=== PATIENT | female | born 1935 | race Caucasian/White ===

== ENCOUNTER 2018-09-24 04:21 | Emergency (ER) | payer OTHER, MEDICARE ==
[2018-09-24 04:31] VITALS: TEMP 97.8; BMI 29.9
--- NOTE | 2018-09-24 04:41 | PDOC ---
History of Present Illness - General Chief Complaint: Pain, Acute Stated Complaint: PAIN RADIATING DOWN LEFT LEG X 5 DAYS Time Seen by Provider: 09/24/18 04:31 History Source: Patient Exam Limitations: No Limitations - History of Present Illness Initial Comments: 09/24/18 04:47 This is an 82-year-old female who has history of spinal stenosis and sciatica. Patient said that is been flaring up over the last several days and this morning when she was carrying something it got worse and started radiating down her leg. Patient took 2 regular strength Tylenol and clonazepam without relief so called an ambulance. Allergies: None Past Medical History: none Social history: Lives with family. No smoking. No alcohol. No illicit drugs. Surgical history: None General: No fevers or chills, no weakness, no weight loss HEENT: No change in vision. No sore throat,. No ear pain CardioVascular: no chest discomfort. No shortness of breath Respiratory:No cough, or wheezing. Gastrointestinal: no nausea, vomiting, diarrhea or constipation, No rectal bleeding Genitourinary: No dysuria, hematuria, or frequency Musculoskeletal: left sciatica Neurologic: No headache, vertigo, dizziness or loss of consciousness Psychiatric: nor depression Skin: No rashes or easy bruising Endocrine: no increased thirst or abnormal weight change Allergic: no skin or latex allergy All other systems reviewed and normal GENERAL: The patient is awake, alert, and fully oriented, in no acute distress. HEAD: Normal with no signs of trauma. EYES: Pupils equal, round and reactive to light, extraocular movements intact, sclera anicteric, conjunctiva clear. EXTREMITIES:atraumatic, Normal range of motion, no edema. BACK: There is pain on palpation over the left sciatic notch there is no pain on palpation of the lumbar or sacral spine. Pain is not exacerbated by straight leg raising. NEUROLOGICAL: Normal speech, normal gait. PSYCH: Normal mood, normal affect. SKIN: Warm, Dry, normal turgor, no rashes or lesions noted. 09/24/18 06:21 Patient's pain improved after Tylenol and Robaxin. Patient still has some pain but is able to ambulate to the bathroom with minimal assistance. Patient discharged home, her son is coming to pick her up. Past History - Past Medical History Allergies/Adverse Reactions: Allergies Allergy/AdvReac Type Severity Reaction Status Date / Time Penicillins Allergy Mild Verified 09/24/18 04:23 Home Medications: Ambulatory Orders Hydrochlorothiazide [Hctz -] 25 mg PO DAILY 02/17/12 Metoprolol Succinate [Toprol XL -] 25 mg PO BID 02/17/12 Alprazolam [Xanax -] 0.25 mg PO Q12H PRN 05/24/14 Calcium Carbonate/Vitamin D3 [Caltrate-600 with Vit D Tab] 1 each PO BID Cholecalciferol (Vitamin D3) [Vitamin D] 1,000 unit PO BID 05/24/14 Simvastatin [Zocor -] 40 mg PO HS 05/24/14 Warfarin Na [Coumadin] 2.5 mg PO HS 05/24/14 Methocarbamol [Robaxin -] 500 mg PO TID #21 tablet 09/24/18 Cardiac Disorders: Yes (afib) COPD: No GI Disorders: Yes (IBS) HTN: Yes Hypercholesterolemia: Yes Seizures: Yes (ANXIETY) Other medical history: SPINAL STENOSIS - Suicide/Smoking/Psychosocial Hx Smoking Status: No Smoking History: Never smoked Have you smoked in the past 12 months: No Number of Cigarettes Smoked Daily: 0 Information on smoking cessation initiated: No Hx Alcohol Use: No Drug/Substance Use Hx: No Trauma Specific PMHX - Complaint Specific PMHX Arthritis: No *Physical Exam - Vital Signs Last Vital Signs Temp Pulse Resp BP Pulse Ox 97.8 F 74 16 160/71 95 09/24/18 04:24 09/24/18 04:24 09/24/18 04:24 09/24/18 04:24 09/24/18 04:24 Moderate Sedation - Procedure Monitoring Vital Signs: Procedure Monitoring Vital Signs Temperature 97.8 F 09/24/18 04:24 Pulse Rate 74 09/24/18 04:24 Respiratory Rate 16 09/24/18 04:24 Blood Pressure 160/71 09/24/18 04:24 O2 Sat by Pulse Oximetry (%) 95 09/24/18 04:24 *DC/Admit/Observation/Transfer Diagnosis at time of Disposition: Low back pain - Discharge Dispostion Disposition: HOME Condition at time of disposition: Stable Decision to Admit order: No - Prescriptions Prescriptions: Methocarbamol [Robaxin -] 500 mg PO TID #21 tablet - Referrals - Patient Instructions Additional Instructions: For the pain take Tylenol 2 extra strength tablets or 4 regular strength tablets every 4-6 hours. In addition to that you can take Robaxin 1 tablet 3 times a day. Return to the emergency department immediately with ANY new, persistent or worsening symptoms. Continue any medications as previously prescribed by your physician. You should follow up with your primary doctor as soon as possible regarding today's emergency department visit. . Please make sure your doctor reviews the results of your emergency evaluation. Thank you for coming to the Emergency Department today for your care. It was a pleasure to see you today. Please note that your evaluation is INCOMPLETE until you follow-up with your doctor. - Post Discharge Activity
[2018-09-24] MEDS ORDERED: ACETAMINOPHEN 325 MG TABLET (FP) PO ONE (04:42)
[2018-09-24] MEDS ORDERED: ACETAMINOPHEN 325 MG TABLET (FP) ONE (04:43)
[2018-09-24] MEDS ORDERED: METHOCARBAMOL 500 MG TABLET PO ONE (04:45)
[2018-09-24] MEDS ORDERED: METHOCARBAMOL 500 MG TABLET ONE (04:48)
[2018-09-24 09:51] VITALS: BP 146/65; PULSE 79
== END 2018-09-24 10:42 | disposition home or self-care (01) ==
LOC: FER 04:21
DX: M54.5 Low back pain (principal); F41.9 Anxiety disorder, unspecified; I48.91 Unspecified atrial fibrillation; E78.00 Pure hypercholesterolemia, unspecified; I10 Essential (primary) hypertension
CPT/HCPCS: 99281-25

== ENCOUNTER 2018-09-30 04:35 | Emergency (ER) | payer OTHER, MEDICARE ==
--- NOTE | 2018-09-30 04:36 | PDOC ---
History of Present Illness - General Stated Complaint: FALL History Source: Patient - History of Present Illness Initial Comments: 09/30/18 04:53 The patient is an 82 year old female with a PMH of AFib (on Warfarin), HTN, HLD and Sciatica who was BIBEMS following a fall from a straight backed armless chair to the ground. Patient state she was working at the computer when she fell asleep. She next remembers hearing a loud noise and waking up and falling over onto her R side. Was not able to lift herself up so she moved along the floor to the bottom of the stairwell and called for her who was upstairs. Allergy: Penicillin Past History - Past Medical History Allergies/Adverse Reactions: Allergies Allergy/AdvReac Type Severity Reaction Status Date / Time Penicillins Allergy Mild Verified 09/30/18 04:41 Home Medications: Ambulatory Orders Hydrochlorothiazide [Hctz -] 25 mg PO DAILY 02/17/12 Metoprolol Succinate [Toprol XL -] 25 mg PO DAILY 02/17/12 Calcium Carbonate/Vitamin D3 [Caltrate-600 with Vit D Tab] 1 each PO BID Cholecalciferol (Vitamin D3) [Vitamin D] 1,000 unit PO BID 05/24/14 Simvastatin [Zocor -] 40 mg PO HS 05/24/14 Warfarin Na [Coumadin] 2.5 mg PO SUMOTUTHFR 05/24/14 Methocarbamol [Robaxin -] 500 mg PO TID #21 tablet 09/24/18 Clonazepam 0.25 mg PO DAILY PRN 09/30/18 Loperamide HCl [Loperamide] 2 mg PO DAILY PRN 09/30/18 Metformin HCl [Metformin HCl ER] 500 mg PO BID 09/30/18 Warfarin Sodium [Coumadin] 5 mg PO WESA 09/30/18 Cardiac Disorders: Yes (afib) COPD: No GI Disorders: Yes (IBS) HTN: Yes Hypercholesterolemia: Yes Seizures: Yes (ANXIETY) - Suicide/Smoking/Psychosocial Hx Smoking Status: No Smoking History: Never smoked Have you smoked in the past 12 months: No Number of Cigarettes Smoked Daily: 0 Hx Alcohol Use: No Drug/Substance Use Hx: No Review of Systems - Review of Systems Constitutional: No: Chills, Fever HEENTM: No: Blurred Vision, Recent change in vision Respiratory: No: Cough, Shortness of Breath Cardiac (ROS): No: Chest Pain, Lightheadedness, Palpitations, Syncope ABD/GI: No: Constipated, Diarrhea, Nausea, Vomiting *Physical Exam - Physical Exam Comments: 09/30/18 04:59 Awake, alert, verbal Moves all 4 extremities 0.5 mm abrasion on L temporal lobe S1/S2 Lungs CLTA B/L General Appearance: Yes: Nourished, Appropriately Dressed HEENT: positive: Normal Voice, Hearing Grossly Normal Neck: positive: Trachea midline, Supple Respiratory/Chest: positive: Lungs Clear, Normal Breath Sounds Cardiovascular: positive: S1, S2. negative: Edema, JVD, Murmur Vascular Pulses: Dorsalis-Pedis (R): 2+, Doralis-Pedis (L): 2+ Gastrointestinal/Abdominal: positive: Normal Bowel Sounds, Soft Extremity: positive: Normal Capillary Refill, Normal Inspection Integumentary: positive: Normal Color, Dry Neurologic: positive: Fully Oriented, Alert Heart Score/ECG Review - ECG Impressions Comment:: 09/30/18 06:55 HR 69, 1st degree AV block, incomplete RBB, c/w previous EKG ED Treatment Course - LABORATORY CBC & Chemistry Diagram: 09/30/18 05:10 09/30/18 05:10 Medical Decision Making - Medical Decision Making 09/30/18 04:56 82 year old female presents s/p fall from a chair to the floor. VS stable. Pelvis stable, moves all 4 extremities, no C-spine, L/T/S tenderness. H/o AFib on Warfarin. Will obtain Head CT, basic labs. Cervical collar in place. Reassess. 09/30/18 05:53 INR 1.48 - subtherapeutic, patient safe for discharge home pending imaging. Head CT/C-spine pending. Will sign patient out to Dr. Barcenas (Attending) Likely disposition is home pending no acute fracture/subluxation *DC/Admit/Observation/Transfer Diagnosis at time of Disposition: Closed head injury Fall Qualifiers: Encounter type: initial encounter Qualified Code(s): W19.XXXA - Unspecified fall, initial encounter Cervical strain Qualifiers: Encounter type: initial encounter Qualified Code(s): S16.1XXA - Strain of muscle, fascia and tendon at neck level, initial encounter - Discharge Dispostion Disposition: HOME Condition at time of disposition: Good Decision to Admit order: No - Referrals Referrals: Chris Carrasco [Primary Care Provider] - - Patient Instructions Printed Discharge Instructions: How to Prevent Falls, DI for Closed Head Injury Additional Instructions: Follow up with your primary care doctor in the next one week. Return to the ED for any new/worsening/concerning symptoms. FALL PREVENTION AT HOME WHAT YOU NEED TO KNOW There are many different factors that can increase your risk of falls. Falls can happen any time, but the majority of them occur in the home. Fall prevention includes ways to make your home and other areas safer. It also includes ways you can move more carefully to prevent a fall. Health conditions that cause changes in your blood pressure, vision, or muscle strength and coordination may increase your risk for falls. Medicines, including anesthesia, may increase your risk for falls if they make you dizzy, weak, or sleepy. FALL PREVENTION TIPS Stand or sit up slowly. This may help you keep your balance and prevent falls. Do not walk and talk at the same time. Concentrate on the task of walking and continue the conversation after you've reached a safe place. Wear shoes that fit well and have soles that digital forensic examiner. Wear shoes both inside and outside. Use slippers with good digital forensic examiner. Avoid shoes with high heels. Use assistive devices as directed. Your healthcare provider may suggest that you use a cane or walker to help you keep you balance. Be sure you have adequate lighting throughout your house. Keep paths clear. Remove books, shoes and other objects from walkways and stairs. Keep cords for telephones and lamps out of the way so you dont need to walk over them. Remove small rugs or secure them with double-sided tape. This will prevent you from tripping. Use a nightlight when getting out of bed at night. Stay active to maintain overall strength and endurance. Know your limitations. If there is a task you can not complete with ease, do not risk a fall by trying to complete it. Call 911 or have someone else call if: You have fallen and are unconscious You have fallen and cannot move part of your body Contact your healthcare provider if: You have fallen and have pain or a headache You have questions or concerns about your condition or care. - Post Discharge Activity
[2018-09-30 04:45] VITALS: TEMP 98.4; BMI 30.2
--- NOTE | 2018-09-30 04:50 | PDOC ---
Attending Attestation - HPI HPI: 09/30/18 05:40 The patient is an 82 year old female with a PMH of afib (on Warfarin), HTN, HLD and sciatica who was brought in by EMS s/p fall prior to arrival. Patient states she was getting up from an armless chair after getting startled from her sleep when she fell onto her right side. Patient was unable to ambulate after the fall and called her to come help her. Allergy: Penicillins Social Hx: No reported alcohol, drug or cigarette use. Surgical Hx: None reported. - Physicial Exam PE: 09/30/18 05:40 Agree with resident's exam. <Carolina Gallo - Last Filed: 09/30/18 05:40> - Resident Resident Name: Marlyn Hurtado - ED Attending Attestation I have performed the following: I have examined & evaluated the patient, The case was reviewed & discussed with the resident, I agree w/resident's findings & plan - Medical Decision Making 09/30/18 06:30 82-year-old female status post mechanical fall with an abrasion to the scalp currently on Coumadin for atrial fibrillation Plan for CT scans of the head and cervical spine with likely discharged home if normal INR is subtherapeutic at 1.48 <Yuliet Carlos - Last Filed: 09/30/18 06:31>
[2018-09-30 05:24] LABS: BASO % 2.4 % (0-2.0); EOS % 4.5 % (0-4.5); HEMATOCRIT 36.8 % (32.4-45.2); HEMOGLOBIN 12.3 GM/dL (10.7-15.3); LYMPH % 25.2 % (8-40); MCH 29.5 pg (25.7-33.7); MCHC 33.4 g/dl (32.0-36.0); MEAN CELL VOLUME 88.3 fl (80-96); MEAN PLT VOLUME 8.1 fl (7.5-11.1); MONO % 10.9 % (3.8-10.2); PLATELET COUNT 180 K/MM3 (134-434); RBC 4.16 M/mm3 (3.60-5.2); RDW 15.4 % (11.6-15.6); WHITE BLOOD COUNT 4.6 K/mm3 (4.0-10.0)
[2018-09-30 05:46] LABS: INR 1.48 (0.83-1.09); PROTHROMBIN TIME (PATIENT) 17.5 SEC (9.7-13.0)
[2018-09-30 05:49] LABS: ACTIVATED PTT 35.1 SECONDS (25.2-36.5)
[2018-09-30 05:57] LABS: ALBUMIN 3.9 g/dl (3.4-5.0); ALK PHOS 75 U/L (45-117); ANION GAP 7 MMOL/L (8-16); BILIRUBIN,TOTAL 0.4 mg/dL (0.2-1); BLOOD UREA NITROGEN 18 mg/dL (7-18); CHLORIDE 106 mmol/L (98-107); CO2 30 mmol/L (21-32); CREATININE 0.9 mg/dL (0.55-1.3); GLUCOSE,RANDOM 127 mg/dL (74-106); POTASSIUM 4.3 mmol/L (3.5-5.1); SGOT/AST 26 U/L (15-37); SGPT/ALT 28 U/L (13-61); SODIUM 143 mmol/L (136-145); TOT PROT 7.3 g/dl (6.4-8.2)
--- NOTE | 2018-09-30 07:56 | PDOC ---
*Physical Exam - Vital Signs Last Vital Signs Temp Pulse Resp BP Pulse Ox 98.4 F 67 18 136/73 96 09/30/18 04:41 09/30/18 04:41 09/30/18 04:41 09/30/18 04:41 09/30/18 05:30 ED Treatment Course - LABORATORY CBC & Chemistry Diagram: 09/30/18 05:10 09/30/18 05:10 - ADDITIONAL ORDERS Additional order review: Laboratory Results 09/30/18 09/30/18 05:10 05:10 PT with INR 17.50 H INR 1.48 H PTT (Actin FS) 35.1 Sodium 143 Potassium 4.3 Chloride 106 Carbon Dioxide 30 Anion Gap 7 L BUN 18 Creatinine 0.9 Creat Clearance w eGFR 59.65 Random Glucose 127 H Calcium 9.0 Total Bilirubin 0.4 AST 26 ALT 28 Alkaline Phosphatase 75 Total Protein 7.3 Albumin 3.9 09/30/18 05:10 RBC 4.16 MCV 88.3 MCHC 33.4 RDW 15.4 MPV 8.1 Neutrophils % 57.0 Lymphocytes % 25.2 Monocytes % 10.9 H Eosinophils % 4.5 Basophils % 2.4 H Medical Decision Making - Medical Decision Making 09/30/18 07:53 pt signed out from Dr Carlos pending reeval and CT imaging results s/p fall VS reviewed, wnl. labs wnl, INR mildly subtherapeutic CT head neg for bleed/injuries CT c spine with degenerative changes, no fx/subluxation pt feels better. intermittent double vision, since resolved. no visual deficits and no focal neuro deficits fall safety precaution provided 09/30/18 07:56 *DC/Admit/Observation/Transfer Diagnosis at time of Disposition: Closed head injury Fall Qualifiers: Encounter type: initial encounter Qualified Code(s): W19.XXXA - Unspecified fall, initial encounter Cervical strain Qualifiers: Encounter type: initial encounter Qualified Code(s): S16.1XXA - Strain of muscle, fascia and tendon at neck level, initial encounter - Discharge Dispostion Disposition: HOME Condition at time of disposition: Good Decision to Admit order: No - Referrals - Patient Instructions Printed Discharge Instructions: How to Prevent Falls, DI for Closed Head Injury Additional Instructions: Follow up with your primary care doctor in the next one week. Return to the ED for any new/worsening/concerning symptoms. FALL PREVENTION AT HOME WHAT YOU NEED TO KNOW There are many different factors that can increase your risk of falls. Falls can happen any time, but the majority of them occur in the home. Fall prevention includes ways to make your home and other areas safer. It also includes ways you can move more carefully to prevent a fall. Health conditions that cause changes in your blood pressure, vision, or muscle strength and coordination may increase your risk for falls. Medicines, including anesthesia, may increase your risk for falls if they make you dizzy, weak, or sleepy. FALL PREVENTION TIPS Stand or sit up slowly. This may help you keep your balance and prevent falls. Do not walk and talk at the same time. Concentrate on the task of walking and continue the conversation after you've reached a safe place. Wear shoes that fit well and have soles that cattle broker. Wear shoes both inside and outside. Use slippers with good cattle broker. Avoid shoes with high heels. Use assistive devices as directed. Your healthcare provider may suggest that you use a cane or walker to help you keep you balance. Be sure you have adequate lighting throughout your house. Keep paths clear. Remove books, shoes and other objects from walkways and stairs. Keep cords for telephones and lamps out of the way so you dont need to walk over them. Remove small rugs or secure them with double-sided tape. This will prevent you from tripping. Use a nightlight when getting out of bed at night. Stay active to maintain overall strength and endurance. Know your limitations. If there is a task you can not complete with ease, do not risk a fall by trying to complete it. Call 911 or have someone else call if: You have fallen and are unconscious You have fallen and cannot move part of your body Contact your healthcare provider if: You have fallen and have pain or a headache You have questions or concerns about your condition or care. - Post Discharge Activity
[2018-09-30 08:29] VITALS: BP 154/69; PULSE 68
--- NOTE | 2018-10-01 02:35 | EKG ---
Test Reason : Blood Pressure : / mmHG Vent. Rate : 069 BPM Atrial Rate : 069 BPM P-R Int : 212 ms QRS Dur : 118 ms QT Int : 476 ms P-R-T Axes : 062 -17 -16 degrees QTc Int : 510 ms POOR DATA QUALITY, INTERPRETATION MAY BE ADVERSELY AFFECTED SINUS RHYTHM WITH 1ST DEGREE A-V BLOCK INCOMPLETE RIGHT BUNDLE BRANCH BLOCK POSSIBLE LATERAL INFARCT , AGE UNDETERMINED ABNORMAL ECG NO PREVIOUS ECGS AVAILABLE Confirmed by NELLY NAYAK MD ([id number]) on 10/01/2018 2:35:06 AM Referred By: Confirmed By:NELLY NAYAK MD
== END 2018-09-30 09:28 | disposition home or self-care (01) ==
LOC: JER 04:35
DX: S09.90XA Unspecified injury of head, initial encounter (principal); M54.5 Low back pain; W18.39XA Other fall on same level, initial encounter; Y93.89 Activity, other specified; Y92.89 Other specified places as the place of occurrence of the external cause; F41.9 Anxiety disorder, unspecified; I48.91 Unspecified atrial fibrillation; I10 Essential (primary) hypertension; E78.00 Pure hypercholesterolemia, unspecified
CPT/HCPCS: 36415; 70450-TC; 72125-TC; 80053; 85025; 85610; 85730; 93005; 93010; 99284-25